=== PATIENT | male | born 1980 | race Two or more races ===

== ENCOUNTER 2021-06-01 18:25 | Emergency (ER) | payer MEDICAID ==
[~2021-06-01] VITALS: Ht 175.3 cm; Wt 108.9 kg
[~2021-06-01 18:25] MED LIST: ASPI81CH43 PO; FAMO20TA10 PO; FLUC200T35 PO; IBUP800T27 PO
[2021-06-01 19:16] LABS: Basophils # (auto) 0.2 10 ^3/uL (0-0.2); Basophils % (auto) 2.1 % (0.0-2.0); Eosinophils # (auto) 0 10 ^3/uL (0-0.8); Eosinophils % (auto) 0.3 % (0.0-7.0); Hematocrit 45.3 % (41.0-53.0); Hemoglobin 15.3 g/dL (13.5-17.5); Lymphocytes # (auto) 1.6 10 ^3/uL (0.4-5.4); Lymphocytes % (auto) 15.1 % (10.0-50.0); Mean Corpuscular Hemoglobin 30.1 pg (28.0-32.0); Mean Corpuscular Hgb Conc. 33.6 g/dL (32.0-36.0); Mean Corpuscular Volume 89.4 fL (80.0-100.0); Monocytes # (auto) 0.7 10 ^3/uL (0-1.3); Monocytes % (auto) 6.1 % (0.0-12.0); Neutrophils # (auto) 8.2 10 ^3/uL (1.6-8.6); Neutrophils % (auto) 76.4 % (37.0-80.0); Red Blood Cells 5.07 10^6/uL (4.5-5.90); Red Cell Distribution Width 13.6 % (11.8-14.3); White Blood Cell 10.8 10^3/uL (4.4-10.8)
[2021-06-01 19:32] LABS: Albumin 3.8 g/dL (3.4-5.0); Calcium 7.9 mg/dL (8.5-10.1)
[2021-06-01 19:37] LABS: BUN/Creatinine Ratio 14.6; Total Protein 7.2 g/dL (6.4-8.2)
[2021-06-01] MEDS ORDERED: FAMOTIDINE 20 MG TAB PO ONE (22:15)
[2021-06-01] MEDS ORDERED: ONDANSETRON ODT 4 MG TAB PO ONE (22:15)
[2021-06-02 04:00] VITALS: BP 123/76
[2021-06-02] MEDS ORDERED: ACET-1079 PO (04:13)
== END 2021-06-02 04:33 | disposition home or self-care (01) ==
LOC: ER 18:26
DX: K21.9 Gastro-esophageal reflux disease without esophagitis (principal); E78.5 Hyperlipidemia, unspecified
CPT/HCPCS: 36415; 80053; 84484; 85025; 93005; 99285; Q0162

== ENCOUNTER 2022-06-22 03:52 | Emergency (ER) | payer MEDICAID ==
[~2022-06-22] VITALS: Ht 182.9 cm; Wt 108.9 kg
[~2022-06-22 03:52] MED LIST changes: +ACET-1079 PO
[2022-06-22 04:59] LABS: Basophils # (auto) 0.1 10 ^3/uL (0-0.2); Basophils % (auto) 1.1 % (0.0-2.0); Eosinophils # (auto) 0.1 10 ^3/uL (0-0.8); Eosinophils % (auto) 1.6 % (0.0-7.0); Hematocrit 40.4 % (41.0-53.0); Hemoglobin 13.7 g/dL (13.5-17.5); Lymphocytes # (auto) 3.1 10 ^3/uL (0.4-5.4); Lymphocytes % (auto) 45.4 % (10.0-50.0); Mean Corpuscular Hemoglobin 30.5 pg (28.0-32.0); Mean Corpuscular Hgb Conc. 33.9 g/dL (32.0-36.0); Mean Corpuscular Volume 90.1 fL (80.0-100.0); Monocytes # (auto) 0.6 10 ^3/uL (0-1.3); Monocytes % (auto) 8.9 % (0.0-12.0); Neutrophils # (auto) 2.9 10 ^3/uL (1.6-8.6); Nucleated Red Blood Cells % 0.2 %; Red Blood Cells 4.48 10^6/uL (4.5-5.90); Red Cell Distribution Width 13.2 % (11.8-14.3); White Blood Cell 6.8 10^3/uL (4.4-10.8)
[2022-06-22 05:09] LABS: Albumin 3.8 g/dL (3.4-5.0); Calcium 8.3 mg/dL (8.5-10.1); Magnesium 2.5 mg/dL (1.6-2.6); Potassium 3.6 mmol/L (3.5-5.1)
[2022-06-22 05:13] LABS: Bilirubin, Total 0.9 mg/dL (0.2-1.0); Total Protein 7.1 g/dL (6.4-8.2)
[2022-06-22 05:15] LABS: INR 1.05 (0.9-1.15); Partial Thromboplastin Time 32.2 sec (24.6-33.4)
[2022-06-22 05:39] LABS: BUN/Creatinine Ratio 18.5 (10.0-20.0)
[2022-06-22 10:27] LABS: Urine Bacteria NONE SEEN /hpf (None Seen); Urine Blood Negative /uL (Negative); Urine Specific Gravity 1.015 (1.001-1.035); Urine WBC 1 /hpf (0 - 3)
[2022-06-22 10:38] LABS: Amphetamine Screen, Urine NEGATIVE (NEGATIVE); Barbiturate Scree,Urine NEGATIVE (NEGATIVE); Benzodiazephine Screen, Urine NEGATIVE (NEGATIVE); Cannabinoid Screen, Urine NEGATIVE (NEGATIVE); Cocaine Screen, Urine NEGATIVE (NEGATIVE); Opiate Scree,Urine NEGATIVE (NEGATIVE); Phencyclidine Screen, Urine NEGATIVE (NEGATIVE)
[2022-06-22 13:23] VITALS: BP 115/82
== END 2022-06-22 13:43 | disposition home or self-care (01) ==
LOC: ER 03:52 → EDBD 03:52 → ER 13:43
DX: K21.9 Gastro-esophageal reflux disease without esophagitis (principal); G92.9 Unspecified toxic encephalopathy; R51.9 Headache, unspecified; R07.89 Other chest pain; Z79.82 Long term (current) use of aspirin; Z79.1 Long term (current) use of non-steroidal anti-inflammatories (NSAID); Z79.899 Other long term (current) drug therapy
CPT/HCPCS: 36415; 70450; 71045; 80053; 80307; 80320; 81001; 82962; 83735; 84484; 85025; 85610; 85730